=== PATIENT | female | born 1980 ===

== ENCOUNTER 2018-11-19 07:49 | Emergency (ER) | payer OTHER ==
--- NOTE | 2018-11-19 08:13 | UC ---
Throat Pain/Nasal Rafa HPI - HPI Summary HPI Summary: 38 y/o female presents to the urgent care c/o sore throat and ear pain x 24 hours - History of Current Complaint Chief Complaint: UCGeneralIllness Stated Complaint: SORE THROAT FEVEREAR PAIN Time Seen by Provider: 11/19/18 08:12 Hx Obtained From: Patient Hx Last Menstrual Period: 11/13/18 ?: No Onset/Duration: Gradual Onset, Lasting Days - 1 day, Still Present, Worse Since - this morning RT ear pain Severity: Severe Pain Intensity: 9 - RT ear pain Pain Scale Used: 0-10 Numeric Cough: Nonproductive Associated Signs & Symptoms: Positive: Nasal Discharge, Fever - last night. Negative: Sinus Discomfort, Rash - Epiglottits Risk Factors Epiglottis Risk Factors: Negative - Allergies/Home Medications Allergies/Adverse Reactions: Allergies Allergy/AdvReac Type Severity Reaction Status Date / Time No Known Allergies Allergy Verified 11/19/18 08:03 Home Medications: Home Medications NK [No Home Medications Reported] 11/19/18 [History Confirmed 11/19/18] PMH/Surg Hx/FS Hx/Imm Hx Previously Healthy: Yes - Pt denies PMHX - Surgical History Surgical History: None - Family History Known Family History: Positive: None - Pt denies FMHX - Social History Occupation: Employed Full-time Lives: With Family Alcohol Use: Occasionally Substance Use Type: None Smoking Status (MU): Never Smoked Tobacco Review of Systems All Other Systems Reviewed And Are Negative: Yes Constitutional: Positive: Fever - last night Skin: Positive: Negative Eyes: Positive: Negative ENT: Positive: Sore Throat, Ear Ache - B/L ear pain RT>LF, Nasal Discharge - yellowish Respiratory: Positive: Negative Cardiovascular: Positive: Negative Gastrointestinal: Positive: Negative Genitourinary: Positive: Negative Motor: Positive: Negative, Decreased ROM Musculoskeletal: Positive: Negative Neurological: Positive: Negative Psychological: Positive: Negative Is Patient Immunocompromised?: No Physical Exam - Summary Physical Exam Summary: VITAL SIGNS: Reviewed. GENERAL: Patient is a well developed and nourished female who is sitting comfortable in the examining table. Patient is not in any acute respiratory distress. HEAD AND FACE: No signs of trauma. No ecchymosis, hematomas or skull depressions. No sinus tenderness. EYES: PERRLA, EOMI x 2, No injected conjunctiva, no nystagmus. No photophobia. EARS: Hearing grossly intact. Ear canals clear and RT TM injected w/ erythema and yellowish discharge, LF TM dull and bulging, no perforation. MOUTH: Positive pharynx with erythema, exudates, palatal petechiae. mild B/L tonsillar enlargement with no exudate. Uvula in midline. NECK: Supple, trachea is midline, Positive anterior cervical lymphadenopathy, no JVD, no carotid bruit, no c-spine tenderness, neck with full ROM. No meningeal signs, no Kernig's or brudzinskis signs. CHEST: Symmetric, no tenderness at palpation LUNGS: Clear to auscultation bilaterally. No wheezing or crackles. CVS: Regular rate and rhythm, S1 and S2 present, no murmurs or gallops appreciated. ABDOMEN: Soft, non-tender. No signs of distention. No rebound no guarding, and no masses palpated. Bowel sounds are normal. EXTREMITIES: FROM in all major joints, no edema, no cyanosis or clubbing. NEURO: Alert and oriented x 3. No acute neurological deficits. Speech is normal and follows commands. SKIN: Dry and warm Triage Information Reviewed: Yes Vital Signs: Initial Vital Signs Temp 100 F 11/19/18 08:00 Pulse 100 11/19/18 08:00 Resp 18 11/19/18 08:00 BP 105/71 11/19/18 08:00 Pulse Ox 99 11/19/18 08:00 Throat Pain/Nasal Course/Dx - Differential Dx/Diagnosis Differential Diagnosis/HQI/PQRI: Laryngitis, Mononucleosis, Otitis Media, Peritonsillar Abscess, Pharyngitis, Sinusitis, Tonsillitis, URI Provider Diagnosis: Right otitis media, Pharyngitis Discharge - Sign-Out/Discharge Documenting (check all that apply): Patient Departure - d/c home All imaging exams completed and their final reports reviewed: No Studies - Discharge Plan Condition: Stable Disposition: HOME Patient Education Materials: Ear Infection (ED), Pharyngitis (ED) Referrals: [facility] [place] [facility] [place] [facility] [Outside] - 3 Days Additional Instructions: 1- Please take the full course of the antibiotic to avoid resistance. Take yogurt w/ probiotics or culturelle to protect your digestive system 2-Please take ibuprofen PO q6-8hrs prn as instructed after meals to alleviate pain and swelling. Increase fluid intake, eat well, rest and avoid strenuous exercise 3-If symptoms do not improve or worsen please return to the urgent care or f/u with your PCP in 3 days for further evaluation and treatment. - Billing Disposition and Condition Condition: STABLE Disposition: Home
== END 2018-11-19 08:48 | disposition home or self-care (01) ==
LOC: UCEAST 07:49
DX: H66.91 Otitis media, unspecified, right ear (principal); J02.9 Acute pharyngitis, unspecified
CPT/HCPCS: 87651; 99202; G0463

== ENCOUNTER 2018-11-24 07:19 | Emergency (ER) | payer OTHER ==
--- NOTE | 2018-11-24 07:23 | UC ---
General HPI - HPI Summary HPI Summary: Recheck R ear pain. Seen in [facility] 11/19/18. Pain not better, but than awoke with pain in the middle of the night with pain. Was seen in [facility] 11/19/18 re sore throat / viral uri. Started abx d/t ear infection (amoxil). No rash. No abd pain. No n/v. No cough / sob. Some sinus congestion but blows nose, nothing comes out. Has been using q-tips, and concerned jazmyne noted blood on q-tip this morning. No vertigo sx reported. Has not been swimming lately. - History of Current Complaint Stated Complaint: RECHECK OF EAR PAIN Hx Obtained From: Patient Hx Last Menstrual Period: 11/13/18 - Allergy/Home Medications Allergies/Adverse Reactions: Allergies Allergy/AdvReac Type Severity Reaction Status Date / Time No Known Allergies Allergy Verified 11/24/18 07:30 PMH/Surg Hx/FS Hx/Imm Hx Previously Healthy: Yes - Surgical History Surgical History: None - Family History Known Family History: Positive: None - Pt denies FMHX - Social History Alcohol Use: Occasionally Substance Use Type: None Smoking Status (MU): Never Smoked Tobacco Review of Systems All Other Systems Reviewed And Are Negative: Yes Constitutional: Positive: Negative Skin: Positive: Other - see hpi Eyes: Positive: Negative ENT: Positive: Other - see hpi Respiratory: Positive: Other - see hpi Cardiovascular: Positive: Other - see hpi Gastrointestinal: Positive: Other - see hpi Motor: Positive: Other - see hpi Neurovascular: Positive: Other - see hpi Musculoskeletal: Positive: Other: - see hpi Neurological: Positive: Other - see hpi Psychological: Positive: Other - see hpi Is Patient Immunocompromised?: No Physical Exam Triage Information Reviewed: Yes Appearance: Well-Nourished - sitting up, conversing easily. Looks tired but nad. Vital Signs Reviewed: Yes Eye Exam: Normal - grossly normal ENT: Positive: Pharynx normal, Other - R tm intact, mckay. No wax in canal. No evidence om / o-ext L tm - bulging, red. EAC + red and swollen, clear drainage. No pepper purulence. No rash. TM as visible is intact, although d/t swelling, 100% not visible. Course/Dx - Course Course Of Treatment: REviewed coa / tx plan. See avs. Questions as posed answered to the best of my ability. - Diagnoses Provider Diagnosis: Otitis media, Otitis externa Discharge - Sign-Out/Discharge Documenting (check all that apply): Post-Discharge Follow Up All imaging exams completed and their final reports reviewed: No Studies - Discharge Plan Condition: Stable Referrals: No Primary Care Phys,NOPCP [Primary Care Provider] - - Billing Disposition and Condition Condition: STABLE
== END 2018-11-24 08:15 | disposition home or self-care (01) ==
LOC: UCEAST 07:19
DX: H60.91 Unspecified otitis externa, right ear (principal)
CPT/HCPCS: 99212; G0463

== ENCOUNTER 2019-05-27 08:39 | Emergency (ER) | payer OTHER ==
--- NOTE | 2019-05-27 08:47 | UC ---
Throat Pain/Nasal Rafa HPI - HPI Summary HPI Summary: 38 yo female presents with sore throat. She tells me that over the last 2 weeks has had sinus pressure, congestion, and runny nose - those symptoms have improved without treatment. Last night developed a sore throat that is worse this morning. [place] feverish this morning and reports temp was 100.4F. She took 3 at home strep tests from [employer] and all 3 were reportedly positive. She has been eating, drinking, and tolerating po well. Denies cough, rash, n/v - History of Current Complaint Stated Complaint: SORE THROAT Time Seen by Provider: 05/27/19 08:47 Hx Obtained From: Patient Hx Last Menstrual Period: 11/13/18 Onset/Duration: Gradual Onset Severity: Moderate Pain Intensity: 7 Pain Scale Used: 0-10 Numeric - Allergies/Home Medications Allergies/Adverse Reactions: Allergies Allergy/AdvReac Type Severity Reaction Status Date / Time No Known Allergies Allergy Verified 05/27/19 08:48 PMH/Surg Hx/FS Hx/Imm Hx - Additional Past Medical History Additional PMH: None - Surgical History Surgical History: None - Family History Known Family History: Positive: None - Social History Occupation: Employed Full-time Lives: With Family Alcohol Use: Occasionally Substance Use Type: None Smoking Status (MU): Never Smoked Tobacco Review of Systems All Other Systems Reviewed And Are Negative: No Skin: Positive: Negative Eyes: Positive: Negative ENT: Positive: Sore Throat Respiratory: Positive: Negative Cardiovascular: Positive: Negative Gastrointestinal: Positive: Negative Neurovascular: Positive: Negative Neurological: Positive: Negative Psychological: Positive: Negative Physical Exam - Summary Physical Exam Summary: GENERAL: NAD. WDWN. No pain distress. SKIN: No rashes, sores, lesions, or open wounds. HEENT: Head: AT/NC Eyes: Conjunctiva clear without inflammation or discharge. Ears: Hearing grossly normal. TMs intact, no bulging, erythema, or edema. Nose: Nasal mucosa pink and moist. NTTP maxillary and frontal sinus. Throat: Posterior oropharynx mild erythema. No tonsillar enlargement. No exudates. Uvula midline. No hoarse voice or muffled voice. NECK: Supple. Shotty mild anterior cervical LAD with mild TTP CHEST: CTAB. No r/r/w. No accessory muscle use. Breathing comfortably and in no distress. CV: RRR.. Pulses intact. Cap refill <2seconds NEURO: Alert. PSYCH: Age appropriate behavior. Triage Information Reviewed: Yes Vital Signs: Vital Signs: Temp Pulse Resp BP Pulse Ox 99 F 100 18 113/75 100 05/27/19 08:44 05/27/19 08:44 05/27/19 08:44 05/27/19 08:44 05/27/19 08:44 Laboratory Tests 05/27/19 08:53 Group A Strep Rapid Positive A Vital Signs Reviewed: Yes Throat Pain/Nasal Course/Dx - Course Course Of Treatment: POC strep positive. Pt states she had amoxicillin in the past and this did not work - requesting augmentin today. - Differential Dx/Diagnosis Provider Diagnosis: Strep throat Discharge ED - Sign-Out/Discharge Documenting (check all that apply): Patient Departure All imaging exams completed and their final reports reviewed: No Studies - Discharge Plan Condition: Stable Disposition: HOME Prescriptions: Amoxicillin/Clavulanate TAB* [Augmentin TAB 875*] 875 mg PO BID #14 tab Patient Education Materials: Strep Throat (ED) Referrals: No Primary Care Phys,NOPCP [Primary Care Provider] - Additional Instructions: If you develop a fever, shortness of breath, chest pain, new or worsening symptoms - please call your PCP or go to the ED immediately. - Billing Disposition and Condition Condition: STABLE Disposition: Home
[2019-05-27 08:48] VITALS: BP 113/75
== END 2019-05-27 09:15 | disposition home or self-care (01) ==
LOC: UCEAST 08:39
DX: J02.0 Streptococcal pharyngitis (principal)
CPT/HCPCS: 87651; 99212; G0463